=== PATIENT | female | born 1940 | race Caucasian/White ===

== ENCOUNTER 2017-08-28 18:09 | Emergency (ER) | payer OTHER ==
[~2017-08-28] VITALS: Ht 160 cm; Wt 55.8 kg
[2017-08-28] MEDS ORDERED: AMLODIPINE BESYL5 MG (18:25)
[2017-08-28] MEDS ORDERED: SYNTHROID88 MCG (18:26)
== END 2017-08-28 19:59 | disposition home or self-care (01) ==
LOC: ER 18:09
DX: J11.1 Influenza due to unidentified influenza virus with other respiratory manifestations (principal); J06.9 Acute upper respiratory infection, unspecified